=== PATIENT | male | born 1990 | race Caucasian/White ===

== ENCOUNTER 2016-05-02 09:38 | Emergency (ER) | payer OTHER ==
[~2016-05-02] VITALS: Ht 162.6 cm; Wt 74.8 kg
--- NOTE | 2016-05-02 09:58 | ED CARDIAC/CP/PALPITATIONS ---
History of Present Illness General Chief Complaint: General Adult Stated Complaint: LEG PAIN, SOB Source: patient Exam Limitations: no limitations Vital Signs & Intake/Output Vital Signs & Intake/Output Vital Signs Date Time Temp Pulse Resp B/P Pulse O2 O2 Flow FiO2 Ox Delivery Rate 05/02 1155 98.7 90 20 110/60 99 Room Air 05/02 1015 100 Nasal 2.0L Cannula 05/02 0943 98.7 102 22 113/66 99 Room Air Allergies Coded Allergies: No Known Allergies (05/02/16) Reconcile Medications Sertraline HCl (Zoloft) 50 MG TABLET 1 TAB PO DAILY MENTAL HEALTH (Reported) Triage Note: PT STATES HE IS SOB TODAY AND HE HAS PAIN IN RIGHT CALF AND BILATERAL LEGS. PT STATES HE IS TAKING ANABOLIC STEROIDS X 3-4 MONTHS BUT IS TRYING TO TAPER OFF OF THEM Triage Nurses Notes Reviewed? yes Onset: Gradual Duration: day(s): (e), worse persistent since (this morning) Timing: remote history Location: BILATERAL LEGS Radiation: no radiation Activities at Onset: none Associated Symptoms: shortness of breath HPI: This is a 25-year-old male who presents to the ER for chief complaint of shortness of breath that started this morning. He has been having bilateral leg cramping for past few days. He's been taking anabolic steroids daily for the past 4 months and states that he is feeling terrible. He admits to feeling manic and psychotic with racing thoughts. He has been aggressive and has gotten into several fights lately. He states he is trying to taper himself off starting last 2 days. Today called his friend was also p.m. I steroids and they told him to come in because he might have a blood clot. No history of hypertension or diabetes or high cholesterol. Denies any cocaine use. He is a daily smoker as well. Patient presents awake alert anxious in moderate distress. He is tachycardic. Past History Travel History Traveled to [place] past 21 day No Medical History Any Pertinent Medical History? none Psychiatric: SUICIDAL IDEATIONS A CHILD Other Medical Hx: ANABOLIC STEROID USE Surgical History Surgical History: non-contributory Psychosocial History What is your primary language Danish Tobacco Use: Current Daily Use Daily Tobacco Use Amount/Type: => 5 Cigarettes daily ETOH Use: occasional use Illicit Drug Use: denies illicit drug use Family History Hx Contributory? No Review of Systems Review of Systems Constitutional: Denies: chills, fever. EENTM: Reports: no symptoms. Respiratory: Reports: orthopnea. Denies: cough, sputum production. Cardiovascular: Denies: chest pain, palpitations, peripheral edema. GI: Reports: no symptoms. Genitourinary: Reports: no symptoms. Musculoskeletal: Reports: muscle pain. Skin: Reports: no symptoms. Neurological/Psychological: Reports: anxiety. Denies: headache. Hematologic/Endocrine: Denies: bruising, bleeding, polyuria, polydipsia. Immunologic/Allergic: Denies: splenectomy. All Other Systems: Reviewed and Negative Physical Exam Physical Exam General Appearance: well developed/nourished, alert, awake, anxious, moderate distress Head: atraumatic, normal appearance Eyes: Bilateral: PERRL, EOMI. Ears, Nose, Throat: normal pharynx, normal ENT inspection Neck: normal inspection, supple, full range of motion Respiratory: normal breath sounds, chest non-tender Cardiovascular: regular rate/rhythm Peripheral Pulses: 2+ radial (R), 2+ radial (L) Gastrointestinal: normal bowel sounds, soft, non-tender Neurologic/Psych: awake, alert, oriented x 3 Core Measures ACS in differential dx? No Severe Sepsis Present: No Septic Shock Present: No Progress Differential Diagnosis: AMI, aortic dissection, myocarditis, pericarditis, pneumonia, pneumothorax, CHF, PE, AMI, POLYSUBSTANCE ABUSE Plan of Care: Orders Procedure Date/time Status Telemetry/Fiberglass Product Tester 05/02 956 Active TROPONIN LEVEL 05/02 956 Complete PARTIAL THROMBOPLASTIN TIME 05/02 956 Complete PROTHROMBIN TIME 05/02 956 Complete MAGNESIUM 05/02 956 Complete D-DIMER 05/02 956 Complete COMPREHENSIVE METABOLIC PANEL 05/02 956 Complete CREATINE PHOSPHOKINASE 05/02 956 Complete CBC WITHOUT DIFFERENTIAL 05/02 956 Complete EKG 05/02 956 Active Laboratory Tests 05/02/16 1007: Anion Gap 13, Estimated GFR > 60, BUN/Creatinine Ratio 10.0, Glucose 104 H, Calcium 9.2, Magnesium 1.8, Total Bilirubin 0.5, AST 45, ALT 115 H, Alkaline Phosphatase 60, Creatine Kinase 202 H, Troponin I < 0.01, Total Protein 7.4, Albumin 3.8, Globulin 3.6, Albumin/Globulin Ratio 1.1, PT 10.4, INR 0.99, APTT 26, D-Dimer < 200, CBC w Diff NO MAN DIFF REQ, RBC 4.96, MCV 84.9, MCH 28.6, RDW 15.8 H, MPV 8.2, Gran % 70.9, Lymphocytes % 17.4 L, Monocytes % 7.9, Eosinophils % 3.5, Basophils % 0.3, Absolute Granulocytes 8.9 H, Absolute Lymphocytes 2.2, Absolute Monocytes 1.0 H, Absolute Eosinophils 0.4, Absolute Basophils 0, PUBS MCHC 33.6 EKG, TELE MONITOR, IV ATIVAN, IV FLUIDS ORDERED. LABS, TROPONIN, CK ORDERED. PATIENT IMPROVED AFTER IV ATIVAN. WILL STOP USING ANABOLIC STEROIDS. FEELS MUCH CALMER. D-DIMER IS NEGATIVE. TROPONIN IS NEGATIVE. (DESIRAE NAVARRO,LAWSON) Diagnostic Imaging: Viewed by Me: Radiology Read. Discussed w/RAD: Radiology Read. CXR Impression: PATIENT: PETER CORONADO PRESENT AGE: 25 PATIENT ACCOUNT NO: [id number] : 88 LOCATION: [facility] ORDERING PHYSICIAN: LAWSON MERRILL MD SERVICE DATE: 05/02/16 EXAM TYPE: RAD - XRY-CHEST XRAY , PA AND LATERAL EXAMINATION: XR CHEST CLINICAL INFORMATION: Shortness of breath and tachycardia. COMPARISON: None. TECHNIQUE: PA and lateral views of the chest were obtained. FINDINGS: Lungs are well expanded and clear. Cardiac silhouette is at the upper range of normal size with transverse cardiothoracic ratio of 49% . The mediastinal and hilar contours are normal. There is no pulmonary edema or pleural effusion. No acute skeletal findings. IMPRESSION: No acute cardiopulmonary pathology. DICTATED BY: ANGI MITCEHLL MD DATE/TIME DICTATED:1047 BAG VALVER:SCOTTY DATE/TIME TRANSCRIBED:05/02/161047 CONFIDENTIAL, DO NOT COPY WITHOUT APPROPRIATE AUTHORIZATION. <Electronically signed in Other Vendor System> SIGNED BY: ANGI MITCHELL MD 05/02/16 1052 Initial ED EKG: nonspecific ST T wave chg, SINUS TACHYCARDIA @ 101 BPM Rhythm Strip: sinus tachycardia Departure Departure Time of Disposition: 1123 Disposition: HOME OR SELF CARE Condition: Stable Clinical Impression Primary Impression: Anabolic steroid abuse Referrals: TO [facility] MD Additional Instructions: Stop taking anabolic steroids. Please follow-up with the primary care doctor listed. Return to the ER for any changing or worsening symptoms. Departure Forms: Customer Survey General Discharge Information Critical Care Note Critical Care Note Critical Care Time: 30-74 min
[2016-05-02] MEDS ORDERED: ZOLOFT50 M1 PO (09:59)
[2016-05-02 10:17] LABS: ABSOLUTE BASOPHIL COUNT 0 /CUMM (0.0-0.2); ABSOLUTE EOSINOPHIL COUNT 0.4 /CUMM (0.0-0.7); ABSOLUTE GRANULOCYTE CT 8.9 /CUMM (1.4-6.5); ABSOLUTE LYMPH COUNT 2.2 /CUMM (1.2-3.4); BASOPHIL % 0.3 % (0.0-2.0); EOSINOPHIL % 3.5 % (0-5); GRANULOCYTE % 70.9 % (42.2-75.2); HEMATOCRIT 42.1 % (42-52); MEAN CORPUSCULAR HGB 28.6 PG (27.0-31.0); MEAN CORPUSCULAR HGB CONC 33.6 G/DL (33.0-37.0); MEAN CORPUSCULAR VOLUME 84.9 FL (80.0-94.0); MEAN PLATELET VOLUME 8.2 FL (7.4-10.4); PLATELET COUNT 381 /CUMM (130-400); RBC DISTRIBUTION WIDTH 15.8 % (11.5-14.5); RED BLOOD CELL CT 4.96 /CUMM (4.70-6.10); WHITE BLOOD CELL COUNT 12.6 /CUMM (4.8-10.8)
[2016-05-02 10:38] LABS: PT 10.4 SEC (9.4-12.5); PTT 26 SEC (25-37)
--- NOTE | 2016-05-02 10:52 | RADIOLOGY REPORT ---
EXAMINATION: XR CHEST CLINICAL INFORMATION: Shortness of breath and tachycardia. COMPARISON: None. TECHNIQUE: PA and lateral views of the chest were obtained. FINDINGS: Lungs are well expanded and clear. Cardiac silhouette is at the upper range of normal size with transverse cardiothoracic ratio of 49%. The mediastinal and hilar contours are normal. There is no pulmonary edema or pleural effusion. No acute skeletal findings. IMPRESSION: No acute cardiopulmonary pathology.
[2016-05-02 11:55] VITALS: BP 110/60
== END 2016-05-02 11:55 ==
LOC: ERH 09:38
PROVIDERS: Emergency Medicine
DX: F55.3 Abuse of steroids or hormones (principal); R06.02 Shortness of breath; Z72.0 Tobacco use; F41.9 Anxiety disorder, unspecified
CPT/HCPCS: 93005; 93010; 96361; 96374